=== PATIENT | male | born 1935 | race Caucasian/White ===

== ENCOUNTER 2022-02-19 12:56 | Emergency (ER) | payer MEDICARE, OTHER, SELFPAY ==
[2022-02-19 13:05] VITALS: BP 132/63; PULSE 82; RESP 18; TEMP 37.6; O2SAT 97; BMI 25.0
--- NOTE | 2022-02-19 13:37 | ED_ITS ---
HPI - URI/Sore Throat <FLORA Saba - Last Filed: 02/19/22 18:12> General Chief Complaint: Upper Respiratory Symptoms Stated Complaint: Body aches, headache, cough. + at home covid test Time Seen by Provider: 02/19/22 13:22 Source: patient Mode of arrival: Ambulatory History of Present Illness HPI Narrative: This is a 87-year-old male who is unvaccinated for COVID who presents to the emergency department with concern for COVID after recent exposure and feeling increased congestion, a sore throat, runny nose. Patient states that he has been vaccinated for influenza this year but not COVID. He is visiting and on vacation from [place]. Patient is mildly febrile in triage with a temperature 99.7?, denies any chest pain, shortness of breath, difficulty breathing, nausea or vomiting. He endorses a runny nose, increased congestion, and feeling fatigued. He denies any other symptoms right now. Related Data Previous Rx's Medication Instructions Recorded benzocaine 15 mg-menthol 2.6 mg 1 warren MUCOUS MEMBRANE Q2-4H PRN 02/19/22 lozenges (Cepacol Sore Throat #16 ea (benzocaine-menthol)) fluticasone propionate 50 1 spray INTRANASAL BID #16 g 02/19/22 mcg/actuation nasal spray,suspension guaifenesin 400 mg tablet 400 mg PO TID PRN #20 tab 02/19/22 nirmatrelvir 300 mg (150 mg x See Rx Instructions .ROUTE 02/19/22 2)-ritonavir 100 mg tablet (EUA) .COMPLEX #30 tab (Paxlovid 300 mg () Allergies Allergy/AdvReac Type Severity Reaction Status Date / Time No Known Drug Allergies Allergy Verified 02/19/22 13:14 Review of Systems <FLORA Saba - Last Filed: 02/19/22 18:12> Review of Systems Narrative: General: denies fever, chills Head/Neck: Endorses mild headache, denies any neck pain Eyes: denies visual changes, eye pain Cardio: denies chest pain, palpitations Respiratory: denies shortness of breath, endorses a mild cough and runny nose GI: denies abdominal pain, nausea, vomiting, or diarrhea : denies dysuria, hematuria or flank pain MSK: denies new joint pain, muscle weakness or swelling Skin: denies rash, itching or wound Neuro: denies numbness, tingling, dizziness Patient History <FLORA Saba - Last Filed: 02/19/22 18:12> Social History Smoking Status: Current every day smoker Smoking Status: Current every day smoker tobacco type: cigars Substance Use Type: does not use Exam <FLORA Saba - Last Filed: 02/19/22 18:12> Initial Vital Signs Initial Vital Signs: Vital Signs Temperature 99.7 F H 02/19/22 13:05 Pulse Rate 82 02/19/22 13:05 Respiratory Rate 18 02/19/22 13:05 Blood Pressure 132/63 02/19/22 13:05 Pulse Oximetry 97 02/19/22 13:05 <Yonis Chamberlain DO - Last Filed: 02/19/22 18:37> Initial Vital Signs Initial Vital Signs: Vital Signs Temperature 99.7 F H 02/19/22 13:05 Pulse Rate 82 02/19/22 13:05 Respiratory Rate 18 02/19/22 13:05 Blood Pressure 132/63 02/19/22 13:05 Pulse Oximetry 97 02/19/22 13:05 Course <FLORA Saba - Last Filed: 02/19/22 18:12> Orders Ordered: Discontinued Medications Acetaminophen (Acetaminophen 325 Mg Tablet) 650 mg PO NOW ONE Stop: 02/19/22 13:51 Last Admin: 02/19/22 13:55 Dose: 650 mg Documented by: NAESEM Vital Signs Vital signs: Vital Signs - 8 hr 02/19/22 13:05 02/19/22 13:55 Temperature 99.7 F H 99.7 F H Pulse Rate 82 Respiratory Rate 18 Blood Pressure 132/63 Pulse Oximetry 97 <Yonis Chamberlain DO - Last Filed: 02/19/22 18:37> Orders Ordered: Discontinued Medications Acetaminophen (Acetaminophen 325 Mg Tablet) 650 mg PO NOW ONE Stop: 02/19/22 13:51 Last Admin: 02/19/22 13:55 Dose: 650 mg Documented by: NASEEM Vital Signs Vital signs: Vital Signs - 8 hr 02/19/22 13:05 02/19/22 13:55 Temperature 99.7 F H 99.7 F H Pulse Rate 82 Respiratory Rate 18 Blood Pressure 132/63 Pulse Oximetry 97 [facility] - URI/Sore Throat <Fide Shanna DurgaFLORA - Last Filed: 02/19/22 18:12> [facility] Narrative Medical decision making narrative: This is an 87-year-old male who presents to the emergency department on day one of upper respiratory symptoms including body aches, headache, cough and a sore throat and he tested positive at home for COVID today. On exam, patient does not have any abnormal breath sounds, does not have any tachypnea, hypoxia, shortness of breath, or retractions. Patient is unvaccinated for COVID. COVID (+) on day 1 of symptoms without hypoxia, respiratory distress, dehydration, or focal exam to suggest secondary bacterial infection. Discussed CDC guidelines for quarantine, mask wearing, physical distancing, and infection prevention measures such as frequent handwashing. Because patient has a mildly elevated temperature, discussed his risk factors at his age. Patient was prescribed Paxlovid, it does not have any interactions with his daily medications, encouraged him to use throat lozenges, Flonase and guaifenison as needed for his symptoms. Discussed Supportive treatments: Tylenol as needed for pain/fever. OTC decongestant medications and/or antihistamines for symptomatic relief. Maintain adequate fluid intake. Follow-up with PCP as directed. Return to clinic/ER instructions discussed for new, not improving, or worsening symptoms. All questions answered. Discharge Plan Departure Patient Disposition: Home Clinical Impression: COVID-19 Instructions: DI for COVID-19 (Suspected or Confirmed ) Activity Restrictions/Additional Instructions: *You have been diagnosed with COVID-19. Today in the emergency department, you had a mild fever, your lungs sounded clear, you did not have any signs of respiratory distress, your oxygen level was normal and your heart sounded n ormal which are all good things. However, today's day one of your symptoms, and you are ready have a fever and this is uncommon for people of your H which concerns me for how your COVID or so of COVID might go. Because you are unvaccinated for COVID, I highly recommend Paxlovid as the FDA recommended COVID treatment to help reduce your risk of hospitalization and mortality. Please brain picker your medication at [facility], please take it as prescribed, there are no interactions between levothyroxine and metoprolol with this medication. Please try to stay hydrated, take Flonase morning and night for your symptoms, you may use NyQuil or Benadryl at night as needed, throat lozenges, or Mucinex for your symptoms. Please do not hesitate to return to the emergency department if you start feeling worse, have any difficulty with breathing, or cannot manage her symptoms at home. *What to do: *Please continue to take your regular medications as directed. [ x] New medication prescriptions sent to your pharmacy: [ [facility]] [ ] New medication written as a paper prescription [ ] No new medications given *Please follow up with your primary care provider in 2-3 days, call for an appointment. Let them know you were seen in the Emergency Department and that we asked that you be seen for follow-up. We will electronically transmit a record of today's note if your PCP is in our system *If you do not have a primary care provider please contact [phone] to establish care with one of [facility] primary care providers. *Return to Emergency Department if you should have any new, worsening or concerning symptoms, such as [fever greater than 101F, chills, worsening pain, persistent vomiting or other bothersome symptoms] Prescriptions: New Paxlovid (EUA) 150 mg x 2- 100 mg tablet See Rx Instructions .ROUTE .COMPLEX Qty: 30 0RF Rx Instructions: take TWO 150 mg tablets of nirmatrelvir with ONE 100 mg tablet of ritonavir twice daily for 5 days fluticasone propionate 50 mcg/actuation spray,suspension 1 spray intranasal BID Qty: 16 0RF Rx Instructions: administer into each nostril Cepacol Sore Throat (alesha-men) 15-2.6 mg lozenge 1 warren mucous membrane Q2-4H PRN (Reason: sore throat) Qty: 16 0RF guaifenesin 400 mg tablet 400 mg PO TID PRN (Reason: cough) Qty: 20 0RF Visit Report Forms: Patient Portal/API <Yonis Chamberlain, DO - Last Filed: 02/19/22 18:37> [facility] Cosignature Attestation: Dr Chamberlain Co-Sign Statement: I was available for consultation during this patient's emergency department visit. This chart is signed by myself for administrative purposes only. I did not have direct contact with this patient during this visit. They were seen independently by the APC.
[2022-02-19 13:55] VITALS: TEMP 37.6
[2022-02-19] MEDS: ACETAMINOPHEN 325 MG TABLET 650 MG PO (13:55)
== END 2022-02-19 13:57 | disposition home or self-care (01) ==
PROVIDERS: Emergency Provider Nurse Practitioner Critical Care Medicine
DX: U07.1 COVID-19 (principal)
CPT/HCPCS: 99282; 99283